=== PATIENT | male | born 1950 | race Caucasian/White ===

== ENCOUNTER 2021-09-28 12:16 | Emergency (ER) | payer MEDICARE, BC ==
[2021-09-28] MEDS ORDERED: ATOR10TA PO (12:44)
[2021-09-28] MEDS ORDERED: TRAM50TA2 PO (13:16)
[2021-09-28] MEDS ORDERED: HYDROCODONE/APAP 10/325MG TABLET ONE (13:23)
[2021-09-28] MEDS ORDERED: TDAP [DIPH/PERTUSSIS/TET] 0.5 ML VIAL IM ONE ×2 (13:24→13:30)
[2021-09-28] MEDS ORDERED: HYDROCODONE/APAP 10/325MG TABLET PO ONE (13:30)
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
--- NOTE | 2021-09-28 13:52 | NUR ---
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
[2021-09-28 14:44] VITALS: BP 128/78
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
== END 2021-09-28 13:30 | disposition home or self-care (01) ==
LOC: ER 12:20
DX: S42.032A Displaced fracture of lateral end of left clavicle, initial encounter for closed fracture (principal); S80.12XA Contusion of left lower leg, initial encounter; Z79.899 Other long term (current) drug therapy; V87.8XXA Person injured in other specified noncollision transport accidents involving motor vehicle (traffic), initial encounter; Y93.89 Activity, other specified; Y92.89 Other specified places as the place of occurrence of the external cause; Y99.8 Other external cause status
CPT/HCPCS: 73030-TC; 90715